=== PATIENT | female | born 2000 | race Two or more races ===

== ENCOUNTER 2020-05-22 08:53 | Emergency (ER) | payer MEDICAID, OTHER ==
[~2020-05-22] VITALS: Ht 157.5 cm; Wt 54.4 kg
[2020-05-22 09:09] VITALS: BP 121/81
[2020-05-22] MEDS ORDERED: KETOROLAC TROMETH 60MG/2ML VIAL IM ONE (09:45)
== END 2020-05-22 10:42 | disposition home or self-care (01) ==
LOC: EDBD 08:53 → ER 08:53
DX: M25.512 Pain in left shoulder (principal); Z88.2 Allergy status to sulfonamides; V89.2XXA Person injured in unspecified motor-vehicle accident, traffic, initial encounter; Y93.89 Activity, other specified; Y92.89 Other specified places as the place of occurrence of the external cause; Y99.8 Other external cause status
CPT/HCPCS: 72040; 73030; 73090; 96372; 99284; J1885